=== PATIENT | female | born 1970 | race Caucasian/White ===

== ENCOUNTER 2016-12-26 08:30 | Day surgery (SDC) | payer OTHER ==
[~2016-12-26 08:30] MED LIST: PROPOFOL INJ 200 MG/20 ML VIAL IV ONE
[2016-12-26] MEDS ORDERED: ONDANSETRON HCL INJ/PF 4 MG/2 ML SDV ONE (10:08)
[2016-12-26 10:43] VITALS: BP 119/79
--- NOTE | 2016-12-26 13:13 | Operative Report ---
Operative Report DATE OF SURGERY: 12/26/16 Operative Report: The risks, benefits and alternatives of the procedure including risks of bleeding, perforation requiring surgery are explained to the patient detail and informed consent is obtained. Patient is taken back to the endoscopy suite and placed in a left, lateral decubital position. Timeout is called. Propofol medications administered. A rectal examination was done which did not reveal any masses, tears or fissures. An Olympus video scope was inserted into the patient's rectum. The scope was then gradually advanced all the way to the cecum. The cecum was identified by the usual anatomical landmarks including the ileocecal valve as well as the appendiceal office. Photodocumentation is obtained. Prep is good. Scope was then sequentially pulled back via the various segments of the colon including the ascending colon, hepatic flexure, transverse colon, splenic flexure, descending colon and finally into the rectosigmoid portions of the colon. Retroflexion maneuvers performed. PREOPERATIVE DIAGNOSIS: Abdominal pain. Change of bowel habits POSTOPERATIVE DIAGNOSIS: Mild right-sided inflammation status post biopsy. Internal hemorrhoids OPERATION: Colonoscopy with biopsy SURGEON: LUÍS HERNÁNDEZ ANESTHESIA: LMAC TISSUE REMOVED OR ALTERED: Right-sided mucosal colon specimens obtained rule out lymphocytic, microscopic, collagenous colitis. COMPLICATIONS: None. ESTIMATED BLOOD LOSS: none. INTRAOPERATIVE FINDINGS: As described above. No masses, AVMs, diverticulosis or polyps noted. PROCEDURE: Patient tolerated the procedure well. No immediate postprocedure complications are noted. Patient discharged in good condition. Discharge date 12/26/2016. Discharge diet: Regular. Discharge activity: Regular. 2-3 week follow-up to discuss findings. We'll await on biopsies. Patient is instructed to call the office or proceed to the emergency room should there be any further problems or questions.
== END 2016-12-26 10:35 | disposition home or self-care (01) ==
LOC: END 08:30
PROVIDERS: ATTEND Internal Medicine Gastroenterology
PROC: 0DBF8ZX Excision of Right Large Intestine, Via Natural or Artificial Opening Endoscopic, Diagnostic (ICD-10-PCS; principal; 2016-12-26 10:30)
DX: R10.84 Generalized abdominal pain (principal); E03.9 Hypothyroidism, unspecified; K64.8 Other hemorrhoids; Z79.899 Other long term (current) drug therapy; F17.210 Nicotine dependence, cigarettes, uncomplicated; Z88.5 Allergy status to narcotic agent; Z88.8 Allergy status to other drugs, medicaments and biological substances
CPT/HCPCS: 45380; 88305 ×2; J2405; J2704; 810

== ENCOUNTER → 2017-02-08 | Outpatient (CLI) | payer OTHER ==
--- NOTE | 2017-02-08 14:39 | RADIOLOGY REPORT (SQ) ---
EXAM DESCRIPTION: U/S RETROPERITON (RENAL/AORTA) COMPLETED DATE/TIME: 02/08/2017 2:26 pm REASON FOR STUDY: LOWER ABDOMINAL PAIN R39.14 FEELING OF INCOMPLETE BLADDER EMPTYING COMPARISON: None. TECHNIQUE: Dynamic and static grayscale images acquired of the kidneys and bladder and recorded on P ACS. Additional selected color Doppler and spectral images recorded. LIMITATIONS: None. FINDINGS: RIGHT KIDNEY: Normal size. Normal echogenicity. No solid or suspicious masses. No hydronep hrosis. No calcifications. LEFT KIDNEY: Normal size. Normal echogenicity. No solid or suspicious masses. No hydronephrosis. No calcifications. BLADDER: No masses. Prevoid volume 89 mL. Postvoid volume 3 mL. OTHER FINDINGS: The uterus appears somewhat enlarged and heterogenous, possibly uterine fibroids. IMPRESSION: NORMAL RENAL AND BLADDER ULTRASOUND. POSSIBLE FIBROID UTERUS, NOT FULLY EVALUATED. TECHNICAL DOCUMENTATION: JOB ID: [id number] [employer]- All Rights Reserved
== END ==
LOC: RAD 12:48
PROVIDERS: ATTEND Nurse Practitioner Family
DX: R39.14 Feeling of incomplete bladder emptying (principal); R10.30 Lower abdominal pain, unspecified
CPT/HCPCS: 76770

== ENCOUNTER → 2018-01-04 | Outpatient (CLI) | payer OTHER ==
--- NOTE | 2018-01-04 14:34 | RADIOLOGY REPORT (SQ) ---
EXAM DESCRIPTION: CT ABD/PELVIS WITH IV ORAL COMPLETED DATE/TIME: 01/04/2018 10:47 am REASON FOR STUDY: PERIUMBILIC ABD PAIN (R10.33) R10.33 PERIUMBILICAL PAIN COMPARISON: None. TECHNIQUE: CT scan of the abdomen and pelvis performed using helical scanning technique with dynamic intravenous contrast injection. No oral contrast. Images reviewed with lung, soft tissue, and bone windows. Reconstructed coronal and sagittal MPR images reviewed. Delayed images for evaluation of the urinary system also acquired. All images stored on PACS. All CT scanners at this facility use dose modulation, iterative reconstruction, and/or weight based d osing when appropriate to reduce radiation dose to as low as reasonably achievable (ALARA). [facility]: Dose Right [facility]: CareDose [facility]: Dose Right [facility]: Teradose 4D [facility]: Brighter Dental Care CONTRAST TYPE AND DOSE: contrast/concentration: Isovue 370.00 mg/ml; Total Contrast Delivered: 74.0 ml; Total Saline Delivered: 66.0 ml RENAL FUNCTION: None required. The patient is less than 50 years old. RADIATION DOSE: CT Rad equipment meets quality standard of care and radiation dose reduction techniq ues were employed. CTDIvol: 4.5 - 5.2 mGy. DLP: 470 mGy-cm.. LIMITATIONS: None. FINDINGS: LOWER CHEST: No significant findings. No nodules or infiltrates. LIVER: Normal size. No masses. No dilated ducts. SPLEEN: Normal size. No focal lesions. PANCREAS: No masses. No significant calcifications. No adjacent inflammation or peripancreatic fluid collections. Pancreatic duct not dilated. GALLBLADDER: No identified stones by CT criteria. No inflammatory changes to suggest cholecystitis. ADRENAL GLANDS: No significant masses or asymmetry. RIGHT KIDNEY AND URETER: No solid masses. No significant calcifications. No hydronephrosis or hyd roureter. LEFT KIDNEY AND URETER: No solid masses. No significant calcifications. No hydronephrosis or hydr oureter. AORTA AND VESSELS: No aneurysm. No dissection. Renal arteries, SMA, celiac without stenosis. RETROPERITONEUM: No retroperitoneal adenopathy, hemorrhage or masses. BOWEL AND PERITONEAL CAVITY: No masses or inflammatory changes. No free fluid or peritoneal masses. APPENDIX: Normal. PELVIS: No mass. No free fluid. Normal bladder. ABDOMINAL WALL: No masses. A small fat containing umbilical hernia is identified. BONES: No significant or acute findings. OTHER: No other significant finding. IMPRESSION: NO SIGNIFICANT OR ACUTE FINDING IN THE ABDOMEN OR PELVIS ON CT SCAN WITH IV CONTRAST. TECHNICAL DOCUMENTATION: JOB ID: [id number] Quality ID # [id number]: Final reports with documentation of one or more dose reduction techniques (e.g., Au tomated exposure control, adjustment of the mA and/or kV according to patient size, use of iterative reconstruction technique) 2010 [employer]- All Rights Reserved Reading location - IP/workstation name: [email or web address]
== END ==
LOC: RAD 10:05
PROVIDERS: ATTEND Internal Medicine Gastroenterology
DX: R10.33 Periumbilical pain (principal)
CPT/HCPCS: 74177

== ENCOUNTER → 2018-08-17 | Outpatient (CLI) | payer OTHER ==
--- NOTE | 2018-08-17 10:54 | RADIOLOGY REPORT (SQ) ---
EXAM DESCRIPTION: U/S ABDOMEN LIMITED W/O DOP COMPLETED DATE/TIME: 08/17/2018 10:33 am REASON FOR STUDY: R10.11 RIGHT UPPER QUADRANT PAIN R10.11 RIGHT UPPER QUADRANT PAIN COMPARISON: None. TECHNIQUE: Dynamic and static grayscale images acquired of the abdomen and recorded on PACS. Additio nal selected color Doppler and spectral images recorded. LIMITATIONS: None. FINDINGS: PANCREAS: No masses. Visualized pancreatic duct normal caliber. LIVER: No masses. Echotexture normal. LIVER VASCULATURE: Normal directional flow of the main portal vein and hepatic veins. GALLBLADDER: No stones. Normal wall thickness. No pericholecystic fluid. ULTRASOUND-DETECTED LUND'S SIGN: Negative. INTRAHEPATIC DUCTS AND COMMON DUCT: CBD and intrahepatic ducts normal caliber. No filling defects. INFERIOR VENA CAVA: Obscured by overlying bowel gas. AORTA: No aneurysm. RIGHT KIDNEY: Normal size. Normal echogenicity. No solid or suspicious masses. No hydronephrosis. No calcifications. PERITONEAL AND RIGHT PLEURAL SPACE: No ascites or effusions. OTHER: No other significant findings. IMPRESSION: NORMAL RIGHT UPPER QUADRANT ULTRASOUND. TECHNICAL DOCUMENTATION: JOB ID: [id number] [employer]- All Rights Reserved Reading location - IP/workstation name: [email or web address]
== END ==
LOC: RAD 10:22
PROVIDERS: ATTEND Family Medicine
DX: R10.11 Right upper quadrant pain (principal)
CPT/HCPCS: 76705

== ENCOUNTER → 2018-08-27 | Outpatient (CLI) | payer OTHER ==
--- NOTE | 2018-08-27 12:37 | RADIOLOGY REPORT (SQ) ---
EXAM DESCRIPTION: NM HIDA SCAN WITH CCK COMPLETED DATE/TIME: 08/27/2018 11:40 am REASON FOR STUDY: RUQ PAIN R10.11 RIGHT UPPER QUADRANT PAIN COMPARISON: None. RADIONUCLIDE AND DOSE: DOSAGE RADIONUCLIDE: 5.1 millicuries Tc99m Mebrofenin. DOSAGE CCK: 1.4 micrograms. DOSAGE MORPHINE: Not required. The route of agent administration: Intravenous TECHNIQUE: Serial imaging right upper quadrant up to 60 minutes following injection of radionuclide. CCK injected after gallbladder visualized. LIMITATIONS: None. FINDINGS: LIVER: Normal visualization INTRAHEPATIC BILE DUCTS: Normal visualization COMMON BILE DUCT: Normal visualization GALLBLADDER: Normal visualization. Calculated ejection fraction of 30%. Normal range is greater th an 35%. PHYSICAL RESPONSE: Patients presenting complaint was reproduced. OTHER: No other significant finding. IMPRESSION: No scintigraphic evidence of cystic duct or common duct obstruction. Depressed gallbladder ejection fraction with IV CCK. IV CCK reproduced the patient's symptoms TECHNICAL DOCUMENTATION: JOB ID: [id number] [employer]- All Rights Reserved Reading location - IP/workstation name: [email or web address]
== END ==
LOC: RAD 08:50
PROVIDERS: ATTEND Family Medicine
DX: R10.11 Right upper quadrant pain (principal)
CPT/HCPCS: 78227; J2805; A9537; Q9969

== ENCOUNTER 2018-09-25 11:24 | Day surgery (SDC) | payer OTHER ==
[2018-09-21 10:12] LABS: HEMATOCRIT 42.5 % (36.0-47.0); HEMOGLOBIN 15.1 g/dL (12.0-15.5); MEAN CORPUSCULAR HGB CONC 35.6 g/dL (32.0-36.0); MEAN CORPUSCULAR VOLUME 93 fl (80-97); PLATELET COUNT 262 10^3/uL (150-450); RED BLOOD COUNT 4.59 10^6/uL (3.72-5.28); RED CELL DISTRIBUTION WIDTH 12.5 % (11.5-14.0); WHITE BLOOD COUNT 4.9 10^3/uL (4.0-10.5)
[2018-09-21 10:45] LABS: ALANINE AMINOTRANSFERASE 9 U/L (9-52); ALBUMIN 4.1 g/dL (3.5-5.0); ALKALINE PHOSPHATASE 61 U/L (38-126); ANION GAP 9 (5-19); ASPARTATE AMINO TRANSFERASE 22 U/L (14-36); BILIRUBIN,DIRECT 0.2 mg/dL (0.0-0.4); BILIRUBIN,TOTAL 0.6 mg/dL (0.2-1.3); BLOOD UREA NITROGEN 12 mg/dL (7-20); CALCIUM 9.1 mg/dL (8.4-10.2); CARBON DIOXIDE 26 mmol/L (22-30); CHLORIDE 105 mmol/L (98-107); GLUCOSE 88 mg/dL (75-110); POTASSIUM 4.4 mmol/L (3.6-5.0); SODIUM 139.5 mmol/L (137-145)
[~2018-09-25 11:24] MED LIST changes: +CEFOXITIN SODIUM 2 GM in DEXTROSE 5%-WATER 100 ML IV PRN; +IBUPROFEN 800 MG in NORMAL SALINE 250 ML IV PRN; +LACTATED RINGERS 1000 ML IV PRN; +LIDOCAINE 0.5% INJ-PF (5 MG/ML) 50 ML SDV SUBCUT PRN; -PROPOFOL INJ 200 MG/20 ML VIAL IV ONE
[2018-09-25] MEDS ORDERED: DEXAMETHASONE SOD PHOSPHATE INJ 4 MG/1 ML VIAL ONE (11:39)
[2018-09-25] MEDS ORDERED: SUGAMMADEX SODIUM 200 MG/2 ML SDV IV ONE (11:39)
[2018-09-25] MEDS ORDERED: ONDANSETRON HCL INJ/PF 4 MG/2 ML SDV ONE (11:39)
[2018-09-25] MEDS ORDERED: FENTANYL CITRATE INJ/PF 100 MCG/2 ML AMPUL ONE (11:39)
[2018-09-25] MEDS ORDERED: ACETAMINOPHEN 1,000 MG/100 ML RTUPB IV ONE (11:40)
[2018-09-25] MEDS ORDERED: PROPOFOL INJ 200 MG/20 ML VIAL IV ONE (11:40)
[2018-09-25] MEDS ORDERED: MIDAZOLAM 2 MG/2 ML INJ ONE ×2 (12:03→12:21)
[2018-09-25] MEDS: MIDAZOLAM 2 MG/2 ML INJ ONE ×2 (12:06→12:23)
[2018-09-25] MEDS ORDERED: ALBUTEROL SULFATE 0.083% NEB 2.5 MG/3 ML AMPUL NEB ONE (12:15)
[2018-09-25] MEDS ORDERED: FAMOTIDINE INJ/PF 20 MG/2 ML SDV IV ONE (12:16)
[2018-09-25] MEDS ORDERED: RINGERS SOLUTION,LACTATED 1,000 ML IV PRN (12:22)
[2018-09-25] MEDS ORDERED: PROMETHAZINE HCL INJ 25 MG/1 ML VIAL IV PRN ×2 (15:16)
[2018-09-25] MEDS ORDERED: ONDANSETRON HCL INJ/PF 4 MG/2 ML SDV IV PRN (15:16)
[2018-09-25] MEDS ORDERED: DIPHENHYDRAMINE HCL 50 MG/ML VIAL IV PRN (15:16)
[2018-09-25] MEDS ORDERED: MEPERIDINE HCL/PF INJ 25 MG/1 ML DISP.SYRIN IV PRN (15:16)
[2018-09-25] MEDS ORDERED: FENTANYL CITRATE INJ/PF 100 MCG/2 ML AMPUL IV PRN ×3 (15:16)
[2018-09-25] MEDS ORDERED: BUPIVACAINE HCL 0.25 % INJ/PF (2.5 MG/1 ML) 30 ML VIAL ONE (15:42)
[2018-09-25] MEDS: FENTANYL CITRATE INJ/PF 100 MCG/2 ML AMPUL ONE ×2 (16:10→16:15)
--- NOTE | 2018-09-25 16:13 | Discharge Summary ---
Discharge Summary (SDC) - Discharge Final Diagnosis: Biliary dyskinesia Date of Surgery: 09/25/18 Discharge Date: 09/25/18 Condition: Stable Forms: ASU Anesthesia D/C Instruction, Discharge POC-Surgical Service Treatment or Instructions: Discharge home. Diet as tolerated. Activity: No lifting greater than 10 pounds x 2 weeks. Percocet 5/325 mg p.o. every 6 hours as needed for pain. Okay to shower in 48 hours. No tub baths or swimming pools times 2 weeks. Follow-up with me in 7-10 days. Referrals: DARIUS BUSH MD [ACTIVE STAFF] - 10/04/18 8:45 am Discharge Diet: As Tolerated Respiratory Treatments at Home: Deep Breathing/Coughing, Incentive Spirometer Discharge Activity: No Lifting Over 10 Pounds Home Care Assistance: None Needed Report the Following to Your Physician Immediately: Shortness of Breath, Nausea, Vomiting, Increase in Pain, Yellow Skin, Fever over 101 Degrees, Unusual Bleeding, Redness
--- NOTE | 2018-09-25 16:18 | Operative Report ---
Nonrecallable Operative Report DATE OF SURGERY: 09/25/18 PREOPERATIVE DIAGNOSIS: Biliary dyskinesia POSTOPERATIVE DIAGNOSIS: Biliary dyskinesia OPERATION: Laparoscopic cholecystectomy SURGEON: DARIUS BUSH ANESTHESIA: GA TISSUE REMOVED OR ALTERED: Gallbladder COMPLICATIONS: None apparent ESTIMATED BLOOD LOSS: Minimal PROCEDURE: Drains/implants: None. Procedure in detail: After informed consent was obtained, the patient was brought to the operating room and laid in supine position. The area of the abdomen was prepped and draped in a normal sterile fashion. An infraumbilical incision was then created using a 15 blade scalpel. Dissection was carried to the fascia using sharp and blunt means. The cicatrix was identified, grasped with a Red clamp, and retracted upwards. The linea alba fascia was incised sharply, the abdomen was entered sharply. The balloon trocar was inserted, and pneumoperitoneum was achieved. A subxiphoid 5 mm port was placed under direct laparoscopic visualization. 2 more 5 mm ports were placed in the right upper quadrant in similar fashion. Atraumatic graspers were placed in the 5 mm ports. The gallbladder was retracted cephalad and laterally. Dissection was begun in the triangle of Calot. The cystic duct and cystic artery were fully visualized and skeletonized, seeing the liver through the triangle. Once the critical view of safety was obtained, the cystic artery was clipped and cut with laparoscopic instruments. The cystic duct was found to be very short. Secondary to this, placing clips around it was difficult. In light of this finding, it was felt to be more prudent to place a PDS Endoloop around the distal infundibulum. The gallbladder was elevated away from the liver. The gallbladder was freed from the liver bed using a mixture of blunt dissection and electrocautery. Once the gallbladder was freed, it was lifted up and a PDS Endoloop was secured around the distal infundibulum/cystic duct junction. This was tightened and the remainder of the gallbladder was amputated. The gallbladder was then placed into a Endo Catch bag and pulled out through the umbilicus. The camera was reinserted. The hilum was inspected. The hilum was found to be free of any leakage of blood or bile. Once this was confirmed, the 5 mm trochars were removed under direct laparoscopic visualization. The infraumbilical trocar was removed, and pneumoperitoneum was relieved. The infraumbilical fascia was closed using 0 Vicryl suture in [id number] fashion. The overlying skin was closed using 4-0 Vicryl Rapide suture. Dressings were placed, and the procedure was concluded. All sponge, instrument, and needle counts were correct x2. Condition: Stable.
[2018-09-25] MEDS ORDERED: LORAZEPAM INJ 2 MG/1 ML VIAL ONE (16:21)
[2018-09-25] MEDS ORDERED: METOCLOPRAMIDE HCL INJ/PF 10 MG/2 ML SDV ONE (16:44)
[2018-09-25] MEDS ORDERED: OXYCODONE-ACETAMINOPHEN 5-325 MG TABLET ONE (17:15)
[2018-09-25 18:49] VITALS: BP 112/74
== END 2018-09-25 18:30 | disposition home or self-care (01) ==
LOC: OROUT 11:24
PROVIDERS: ATTEND Surgery
DX: K81.1 Chronic cholecystitis (principal); Z88.5 Allergy status to narcotic agent; Z88.8 Allergy status to other drugs, medicaments and biological substances; E89.0 Postprocedural hypothyroidism; F17.210 Nicotine dependence, cigarettes, uncomplicated; Z79.899 Other long term (current) drug therapy; Z01.818 Encounter for other preprocedural examination
CPT/HCPCS: 36415; 85027; 81025; 80053; 88304 ×2; 47562; J2250; J1100; J0694; J3010; J2765; J2060; J2405; J7050; J2704; S0028; J0131; J1741; J3490; 790

== ENCOUNTER 2019-05-28 18:22 | Emergency (ER) | payer OTHER ==
--- NOTE | 2019-05-28 20:22 | ER Document Report ---
HPI <MACEY CAREY - Last Filed: 05/28/19 21:02> - HPI Patient complains to provider of: Wound problem Pain Level: 5 Context: 48F presents for wound concern. Pt had a excision of lesion on R sanabria at [facility] with subsequent reexploration d/t infection and placed on Keflex/Bactrim (currently day 6/7). Pt concerned wound is infected. States she has mild CAMARENA, denies fever but states she may have "broke one" this morning, denies increasing redness at site, denies purulent discharge. - REPRODUCTIVE LMP: not sure Reproductive: DENIES: : <ROBINSON TURNER - Last Filed: 05/28/19 21:51> - HPI Time Seen by Provider: 05/28/19 19:50 Past Medical History - Social History Smoking Status: Unknown if Ever Smoked Frequency of alcohol use: None Drug Abuse: None Family History: None Patient has suicidal ideation: No Patient has homicidal ideation: No - Past Medical History Cardiac Medical History: Denies: Hx Coronary Artery Disease, Hx Heart Attack, Hx Hypertension Pulmonary Medical History: Denies: Hx Asthma, Hx Bronchitis, Hx COPD, Hx Pneumonia Neurological Medical History: Reports: Hx Seizures - no seizure since age 3. Denies: Hx Cerebrovascular Accident Musculoskeletal Medical History: Denies Hx Arthritis Past Surgical History: Denies: Hx Hysterectomy - Immunizations Hx Diphtheria, Pertussis, Tetanus Vaccination: Yes <ROBINSON TURNER - Last Filed: 05/28/19 21:51> Vertical Provider Document - CONSTITUTIONAL Notes: PHYSICAL EXAMINATION: Reviewed vital signs and charting by RN GENERAL: Alert, interacts well. No acute distress. HEAD: Normocephalic, atraumatic. EYES: Pupils equal and round. Extraocular movements intact. ENT: Oral mucosa moist, tongue midline. NECK: Full range of motion. Trachea midline. EXTREMITIES: Moves all 4 extremities spontaneously. No edema, No cyanosis. PSYCH: Normal affect, normal mood. SKIN: Warm, dry, normal turgor. Small open area on R anterior sanabria with normal healing, no warmth or redness, mild TTP - INFECTION CONTROL TRAVEL OUTSIDE OF THE [place] IN LAST 30 DAYS: No <ROBINSON TURNER - Last Filed: 05/28/19 21:51> Course - Vital Signs Vital signs: Temp Pulse Resp BP Pulse Ox 98.8 F 88 16 132/92 H 99 05/28/19 18:33 05/28/19 18:33 05/28/19 18:33 05/28/19 18:33 05/28/19 18:33 <MACEY CAREY - Last Filed: 05/28/19 21:02> - Re-evaluation Re-evalutation: 05/28/19 21:49 Well appearing and non-toxic. Afebrile. Wound culture collected. I advised patient that labwork not appropriate at this time and she can follow up with the culture nurse in 72 hours for results. strict return precautions given. Stable for discharge - Vital Signs Vital signs: Temp Pulse Resp BP Pulse Ox 98.8 F 88 16 132/92 H 99 05/28/19 18:33 05/28/19 18:33 05/28/19 18:33 05/28/19 18:33 05/28/19 18:33 <ROBINSON TURNER - Last Filed: 05/28/19 21:51> Discharge <MACEY CAREY - Last Filed: 05/28/19 21:02> <ROBINSON TURNER - Last Filed: 05/28/19 21:51> - Discharge Clinical Impression: Visit for wound check Condition: Good Disposition: HOME, SELF-CARE Additional Instructions: Your wound appears to be healing well and there is no evidence of infection or cellulitis at this time. The wound margins are the normal epithelialization process. We have collected a wound culture to ensure that the antibiotics you have been taking are sensitive to it. Please return to the emergency department or see your primary doctor if you develop fevers, redness spreading from the site, purulent discharge from the site, severe pain in your leg, or you have any other concerning symptoms. Prescriptions: Ondansetron [Zofran Odt 4 mg Tablet] 1 - 2 tab PO Q4H PRN #15 tab.rapdis PRN Reason: For Nausea/Vomiting Referrals: JAX GROSSMAN, ELECTRICIAN TECHNICIAN [Primary Care Provider] - Follow up as needed
[2019-05-28] MEDS ORDERED: ONDANSETRON ODT 4 MG TAB (6 TAB/ER DISP) PO PRN (21:02)
[2019-05-28 21:03] VITALS: BP 106/82
== END 2019-05-28 20:51 | disposition home or self-care (01) ==
LOC: ER 18:22
DX: Z48.817 Encounter for surgical aftercare following surgery on the skin and subcutaneous tissue (principal); R51 Headache
CPT/HCPCS: 87070; 87205

== ENCOUNTER → 2019-06-24 | Outpatient (CLI) | payer OTHER ==
[2019-06-24 13:08] LABS: HEMATOCRIT 44.3 % (36.0-47.0); HEMOGLOBIN 15.6 g/dL (12.0-15.5); MEAN CORPUSCULAR HEMOGLOBIN 32.9 pg (27.0-33.4); MEAN CORPUSCULAR HGB CONC 35.2 g/dL (32.0-36.0); MEAN CORPUSCULAR VOLUME 94 fl (80-97); PLATELET COUNT 259 10^3/uL (150-450); RED BLOOD COUNT 4.73 10^6/uL (3.72-5.28); WHITE BLOOD COUNT 6.1 10^3/uL (4.0-10.5)
[2019-06-24 13:32] LABS: BLOOD UREA NITROGEN 12 mg/dL (7-20); CALCIUM 9.1 mg/dL (8.4-10.2); CHLORIDE 106 mmol/L (98-107); GLUCOSE 80 mg/dL (75-110); POTASSIUM 4.7 mmol/L (3.6-5.0)
[2019-06-24 13:34] LABS: ANION GAP 9 (5-19); CARBON DIOXIDE 24 mmol/L (22-30)
== END ==
LOC: OD 12:15
PROVIDERS: ATTEND Surgery
DX: Z01.818 Encounter for other preprocedural examination (principal); T14.8XXA Other injury of unspecified body region, initial encounter; L02.415 Cutaneous abscess of right lower limb; F17.200 Nicotine dependence, unspecified, uncomplicated; K21.9 Gastro-esophageal reflux disease without esophagitis; K58.9 Irritable bowel syndrome, unspecified; Z90.09 Acquired absence of other part of head and neck; Z90.49 Acquired absence of other specified parts of digestive tract; X58.XXXA Exposure to other specified factors, initial encounter
CPT/HCPCS: 36415; 80048; 85027